=== PATIENT | male | born 1985 | race Caucasian/White ===

== ENCOUNTER 2016-12-14 14:55 | Emergency (ER) | payer BC, OTHER ==
[2016-12-14] MEDS ORDERED: DIPH/PERTUSS(ACELL)/TETANUS VAC/PF 0.5 ML SYR (>=10YO) IM ONE (15:07)
[2016-12-14] MEDS ORDERED: PIPERACILLIN/TAZOBACTAM 3.375 GM VIAL IV ONE (15:08)
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
[2016-12-14] MEDS ORDERED: LIDOCAINE 1%/EPINEPHRINE INJ 20 ML VIAL INJ ONE ×3 (15:26→17:34)
[2016-12-14] MEDS ORDERED: ONDANSETRON HCL INJ/PF 4 MG/2 ML SDV IV ONE (16:36)
[2016-12-14] MEDS ORDERED: MORPHINE SULFATE 10 MG/ML INJ IV ONE (16:36)
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
[2016-12-14] MEDS ORDERED: MORPHINE SULFATE 10 MG/ML INJ ONE ×2 (17:16→17:32)
[2016-12-14] MEDS ORDERED: LIDOCAINE 1.5%/EPINEPHRINE INJ-PF 30 ML SDV INJ ONE (17:31)
[2016-12-14 18:37] VITALS: BP 150/76
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
== END 2016-12-14 18:38 | disposition home or self-care (01) ==
LOC: ER 14:55
PROC: 0HQHXZZ Repair Right Upper Leg Skin, External Approach (ICD-10-PCS; principal; 2016-12-14)
DX: S76.921A Laceration of unspecified muscles, fascia and tendons at thigh level, right thigh, initial encounter (principal); S71.111A Laceration without foreign body, right thigh, initial encounter; W26.8XXA Contact with other sharp object(s), not elsewhere classified, initial encounter; Y93.01 Activity, walking, marching and hiking; Y92.821 Forest as the place of occurrence of the external cause; J45.909 Unspecified asthma, uncomplicated; Z23 Encounter for immunization
CPT/HCPCS: 12002; 99284; 90471; 96374; 96375; 73502; 90715; J3490; J2270; J2405; J2543

== ENCOUNTER 2016-12-16 13:09 | Emergency (ER) | payer BC ==
[2016-12-16 13:17] VITALS: BP 136/74
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
== END 2016-12-16 14:01 | disposition home or self-care (01) ==
LOC: ER 13:09
DX: S71.111D Laceration without foreign body, right thigh, subsequent encounter (principal); W26.0XXD Contact with knife, subsequent encounter
CPT/HCPCS: 99282